=== PATIENT | male | born 1950 | race Caucasian/White ===

== ENCOUNTER 2018-02-03 06:10 | Emergency (ER) | payer OTHER ==
--- NOTE | 2018-02-03 06:39 | PDOC ---
History of Present Illness - General Stated Complaint: DIFFICULTY BREATHING History Source: Patient Exam Limitations: No Limitations - History of Present Illness Initial Comments: 02/03/18 06:33 Patient is a 67-year-old male with past medical Achilles tendon rupture with repair complaining of coughing and wheezing times one week. States it started with an elliptical in his throat and then started to have coughing and congestion and has been wheezing for several days, cough is productive of white sputum. States occasionally he gets cold and has the same presentation. States she is short of breath especially with ambulation, went to the [employer] yesterday and had some problem going up the steps due to SOB. States he flew from [place] 3 days ago but was sick prior to travel. He denies any fever, chills, chest pain, leg swelling . PMD: in [place] PMHX: as above PSOCHX: neg ALL: PCN GENERAL/CONSTITUTIONAL: [No fever or chills. No weakness. No weight change.] HEAD, EYES, EARS, NOSE AND THROAT: [No change in vision. No ear pain or discharge. No sore throat.] CARDIOVASCULAR: [No chest pain or shortness of breath.] RESPIRATORY: (+) cough, wheezing, (-) hemoptysis.] GASTROINTESTINAL: [No nausea, vomiting, diarrhea or constipation. No rectal bleeding.] GENITOURINARY: [No dysuria, frequency, or change in urination.] MUSCULOSKELETAL: [No joint or muscle swelling or pain. No neck or back pain.] SKIN AND BREASTS: [No rash or easy bruising.] NEUROLOGIC: [No headache, vertigo, loss of consciousness, or loss of sensation.] PSYCHIATRIC: [No depression or anxiety.] ENDOCRINE: [No increased thirst. No abnormal weight change.] HEMATOLOGIC/LYMPHATIC: [No anemia, easy bleeding, or history of blood clots.] ALLERGIC/IMMUNOLOGIC: [No hives or skin allergy. No latex allergy.] GENERAL: [The patient is awake, alert, and fully oriented, in no acute distress. ] HEAD: [Normal with no signs of trauma.] EYES: [Pupils equal, round and reactive to light, extraocular movements intact, sclera anicteric, conjunctiva clear.] ENT: [Ears normal, nares patent, oropharynx clear without exudates. Moist mucous membranes.] NECK: [Normal range of motion, supple without lymphadenopathy, JVD, or masses.] LUNGS: [bilaterally wheezes, and no crackles.] HEART: [Regular rate and rhythm, normal S1 and S2 without murmur, rub.] ABDOMEN: [Soft, nontender, normoactive bowel sounds. No guarding, no rebound. No masses.] EXTREMITIES: [Normal range of motion, no edema. No clubbing or cyanosis. No cords, erythema, or tenderness.] NEUROLOGICAL: [Cranial nerves II through XII grossly intact. Normal speech, normal gait.] PSYCH: [Normal mood, normal affect.] Past History - Past Medical History Allergies/Adverse Reactions: Allergies Allergy/AdvReac Type Severity Reaction Status Date / Time No Known Allergies Allergy Verified 02/03/18 06:41 ED Treatment Course - RADIOLOGY Radiology Studies Ordered: Category Date Time Status CHEST PA & LAT [RAD] Stat Radiology 02/03/18 06:32 Ordered Medical Decision Making - Medical Decision Making 02/03/18 06:33 Patient is a 67-year-old male with past medical Achilles tendon rupture with repair complaining of coughing and wheezing times one week consistent with bronchitis. A chest x-ray to rule out pneumonia. Give neb treatments. Endorsed to the a.m. team pending x-ray and improvement in symptoms. *DC/Admit/Observation/Transfer Diagnosis at time of Disposition: Bronchitis - Referrals - Patient Instructions - Post Discharge Activity
--- NOTE | 2018-02-03 06:40 | PDOC ---
ED Treatment Course - LABORATORY CBC & Chemistry Diagram: 02/03/18 07:56 02/03/18 07:56 Medical Decision Making - Medical Decision Making 02/03/18 06:39 Mr Jules is a 67 yo M presenting with a complaint of shortness of breath He has noted this for the past 2 days No fever Recently came in from [place] No chest pain On examination: Expiratory rhonchi and wheezing RRR Will do nebs Will r/o PE given recent speech language pathologist travel seen by Midlevel Provider under my direct supervision All Ancillary studies pending I agree with plan as outlined by Midlevel Provider *DC/Admit/Observation/Transfer Diagnosis at time of Disposition: Bronchitis - Discharge Dispostion Disposition: AGAINST MEDICAL ADVICE Condition at time of disposition: Guarded - Prescriptions Prescriptions: Albuterol Sulfate Inhaler - [Ventolin HFA Inhaler -] 1 - 2 inh PO Q4H #1 inhaler predniSONE [Deltasone -] 40 mg PO DAILY #8 tablet - Referrals Referrals: Mj Garces MD [Staff Physician] - - Patient Instructions Printed Discharge Instructions: DI for Acute Bronchitis Additional Instructions: Your leave AGAINST MEDICAL ADVICE today is recommended having a CAT scan of your chest to rule out blood clot. Please take the albuterol inhaler every 4 hours as needed for cough. Please take the prednisone daily for the next 5 days. Please follow up in our clinic tomorrow. Return to the emergency department immediately if you have increased shortness of breath, difficulty breathing, lightheadedness, dizziness, worsening cough, or if you have any changes in your symptoms. - Post Discharge Activity
[2018-02-03 06:41] VITALS: TEMP 97.8; BMI 35.9
[2018-02-03] MEDS: ALBUTEROL SO4 2.5/IPRATROPIUM 0.5 INH SOL 3 ML VIAL.NEB. NEB SCH ×4 (06:46→08:15)
--- NOTE | 2018-02-03 07:07 | PDOC ---
*Physical Exam - Vital Signs Last Vital Signs Temp Pulse Resp BP Pulse Ox 97.8 F 51 L 18 137/70 97 02/03/18 06:39 02/03/18 06:39 02/03/18 06:39 02/03/18 06:39 02/03/18 06:39 - Physical Exam General Appearance: Yes: Nourished, Appropriately Dressed. No: Apparent Distress (Sitting on exam bed breathing easily.) HEENT: positive: EOMI, JEROMY, Pharynx Normal Neck: positive: Trachea midline, Supple. negative: Tender, Rigid, Lymphadenopathy (R), Lymphadenopathy (L) Respiratory/Chest: positive: Lungs Clear, Normal Breath Sounds, Other (Upper respiratory congestion heard). negative: Respiratory Distress, Accessory Muscle Use, Rhonchi, Stridor, Wheezing Cardiovascular: positive: Regular Rhythm, Regular Rate, S1, S2 (present). negative: Murmur Integumentary: positive: Normal Color, Dry, Warm Neurologic: positive: Fully Oriented, Alert, Normal Mood/Affect, Normal Response ED Treatment Course - LABORATORY CBC & Chemistry Diagram: 02/03/18 07:56 02/03/18 07:56 Medical Decision Making - Medical Decision Making 02/03/18 09:28 Pt. is a 67 y/o M with no PMH, who presents to the ED for cough, congestion and wheezing. Pt. was signed out to me by JOSE JUAN Panchal at 0700. CXR and lab work reviewed. Lab work shows no leukocytosis, no shift. D-dimer ordered as pt is traveling from [place] this week. D-dimer elevated at 568. Pt offered CTA. He refuses stating he does not want to wait as he feels better. Repeat lung exam with no wheezing, CTAB and good aeration to the bases. X-ray shows no evidence of PNA at this time. The patient is clinically sober, free from distracting injury, appears to have intact insight and judgment and reason and in my opinion has the capacity to make decisions. The patient presents with shortness of breath. I have explained that I am concerned that this may represent a blood clot. They have verbalized an understanding of my concerns. I have told the patient that while their chest x-ray was normal, they could still have a PE based on the d-dimer. I have discussed the need for CTA to get more information about potential causes of the patients shortness of breath. I have told the patient that if they leave and have a PE, they could get much worse, could become critically ill, and could possibly become disabled or . I have asked them to stay in the hospital for CTA of chest. The patient is not willing to undergo a CTA. He is unwilling to stay overnight for monitoring. He is refusing any further care and is leaving against medical advice. I am unable to convince the patient to stay, I have asked them to return as soon as possible to complete their evaluation. Pt. does not have a PCP in the area as he is traveling from [place]. Referred to our outpatient clinic for further evaluation. I have answered all their questions ] *DC/Admit/Observation/Transfer Diagnosis at time of Disposition: Bronchitis - Discharge Dispostion Disposition: AGAINST MEDICAL ADVICE Condition at time of disposition: Guarded Decision to Admit order: No - Prescriptions Prescriptions: Albuterol Sulfate Inhaler - [Ventolin HFA Inhaler -] 1 - 2 inh PO Q4H #1 inhaler predniSONE [Deltasone -] 40 mg PO DAILY #8 tablet - Referrals Referrals: Mj Garces MD [Staff Physician] - - Patient Instructions Printed Discharge Instructions: DI for Acute Bronchitis Additional Instructions: Your leave AGAINST MEDICAL ADVICE today is recommended having a CAT scan of your chest to rule out blood clot. Please take the albuterol inhaler every 4 hours as needed for cough. Please take the prednisone daily for the next 5 days. Please follow up in our clinic tomorrow. Return to the emergency department immediately if you have increased shortness of breath, difficulty breathing, lightheadedness, dizziness, worsening cough, or if you have any changes in your symptoms. - Post Discharge Activity
[2018-02-03] MEDS ORDERED: ALBUTEROL SO4 2.5/IPRATROPIUM 0.5 INH SOL 3 ML VIAL.NEB. NEB ONE (07:34)
[2018-02-03 08:00] LABS: BASO % 0.6 % (0-2.0); EOS % 8.3 % (0-4.5); HEMATOCRIT 44.7 % (35.4-49); HEMOGLOBIN 15.2 GM/dL (11.7-16.9); LYMPH % 32.8 % (8-40); MCH 32.6 pg (25.7-33.7); MEAN CELL VOLUME 95.9 fl (80-96); MEAN PLT VOLUME 8.6 fl (7.5-11.1); MONO % 13.7 % (3.8-10.2); NEUT % 44.6 % (42.8-82.8); PLATELET COUNT 173 K/MM3 (134-434); RBC 4.67 M/mm3 (4.00-5.60); RDW 13.8 % (11.9-15.9)
[2018-02-03 08:21] LABS: ALBUMIN 3.6 g/dl (3.4-5.0); ALK PHOS 39 U/L (45-117); ANION GAP 6 (8-16); BILIRUBIN,TOTAL 0.8 mg/dL (0.2-1.0); BLOOD UREA NITROGEN 15 mg/dL (7-18); CALCIUM 8.3 mg/dL (8.5-10.1); CHLORIDE 107 mmol/L (98-107); CO2 26 mmol/L (21-32); CREATININE 0.8 mg/dL (0.7-1.3); GLUCOSE,RANDOM 127 mg/dL (74-106); POTASSIUM 4.2 mmol/L (3.5-5.1); SGOT/AST 31 U/L (15-37); SGPT/ALT 45 U/L (12-78); SODIUM 139 mmol/L (136-145); TOT PROT 6.8 g/dl (6.4-8.2)
[2018-02-03 10:02] VITALS: BP 138/70; PULSE 48
== END 2018-02-03 10:04 | disposition left against medical advice (07) ==
LOC: JER 06:10
PROC: 3E0F7GC Introduction of Other Therapeutic Substance into Respiratory Tract, Via Natural or Artificial Opening (ICD-10-PCS; principal; 2018-02-03)
PROC: 3E0F7GC Introduction of Other Therapeutic Substance into Respiratory Tract, Via Natural or Artificial Opening (ICD-10-PCS; 2018-02-03)
PROC: 3E0F7GC Introduction of Other Therapeutic Substance into Respiratory Tract, Via Natural or Artificial Opening (ICD-10-PCS; 2018-02-03)
PROC: 3E0F7GC Introduction of Other Therapeutic Substance into Respiratory Tract, Via Natural or Artificial Opening (ICD-10-PCS; 2018-02-03)
DX: J40 Bronchitis, not specified as acute or chronic (principal)
CPT/HCPCS: 36415; 71046-TC-FY; 80053; 85025; 85379; 99281-25; J7620